=== PATIENT | female | born 1985 | race Caucasian/White ===

== ENCOUNTER 2018-03-15 10:51 | Emergency (ER) | payer OTHER, SELFPAY ==
[2018-03-15 11:32] LABS: HEMATOCRIT 39.1 % (36.0-47.0); HEMOGLOBIN 13.8 g/dl (12.0-15.5); MEAN CORPUSCULAR HEMOGLOBIN 31.4 pg (27.0-33.0); MEAN CORPUSCULAR HGB CONC 35.3 g/dl (32.0-36.5); MEAN CORPUSCULAR VOLUME 89.1 fl (80.0-96.0); PLATELET COUNT, AUTOMATED 204 10^3/uL (150-450); RED BLOOD COUNT 4.39 10^6/uL (4.00-5.40); RED CELL DISTRIBUTION WIDTH 12.3 % (11.5-14.5); WHITE BLOOD COUNT 10.2 10^3/uL (4.0-10.0)
[2018-03-15 11:43] LABS: CONTROL LINE HCG INT CTR LINE PRESENT; HCG, SERUM QUALITATIVE NEGATIVE (NEGATIVE)
[2018-03-15 11:59] LABS: ALBUMIN 4.6 GM/DL (3.2-5.2); ALBUMIN/GLOBULIN RATIO 1.24 (1.00-1.93); ALKALINE PHOSPHATASE 68 U/L (45-117); ALT/SGPT 26 U/L (12-78); ANION GAP 9 MEQ/L (8-16); AST/SGOT 11 U/L (7-37); BILIRUBIN,DIRECT 0.2 MG/DL (0.0-0.2); BILIRUBIN,TOTAL 0.5 MG/DL (0.2-1.0); BLOOD UREA NITROGEN 13 MG/DL (7-18); CALCIUM LEVEL 9.7 MG/DL (8.5-10.1); CARBON DIOXIDE LEVEL 25 MEQ/L (21-32); CHLORIDE LEVEL 102 MEQ/L (98-107); CREATININE FOR GFR 0.78 MG/DL (0.55-1.30); GLOMERULAR FILTRATION RATE > 60.0 (>60); GLUCOSE, FASTING 89 MG/DL (70-100); POTASSIUM SERUM 3.6 MEQ/L (3.5-5.1); SALICYLATE LEVEL 2.1 MG/DL (5.0-30.0); SODIUM LEVEL 136 MEQ/L (136-145); TOTAL PROTEIN 8.3 GM/DL (6.4-8.2)
[2018-03-15 12:00] LABS: ACETAMINOPHEN LEVEL < 2.0 UG/ML (10.0-30.0)
[2018-03-15] MEDS: LORazepam 2 MG TAB PO ×2 (12:00)
[2018-03-15 12:29] LABS: AMPHETAMINES LEVEL URINE NEGATIVE (NEGATIVE); BARBITURATES URINE NEGATIVE (NEGATIVE); BENZODIAZEPINES URINE NEGATIVE (NEGATIVE); CANNABINOIDS URINE NEGATIVE (NEGATIVE); COCAINE METABOLITE URINE POSITIVE (NEGATIVE); METHADONE URINE NEGATIVE (NEGATIVE); OPIATES URINE NEGATIVE (NEGATIVE); PHENCYCLIDINE URINE NEGATIVE (NEGATIVE)
[2018-03-17 14:20] LABS: ETHYL ALCOHOL (ETHANOL) < 0.003 % (0.000-0.010)
== END 2018-03-15 14:59 | disposition home or self-care (01) ==
LOC: M ED 10:51
DX: F43.0 Acute stress reaction (principal); F32.9 Major depressive disorder, single episode, unspecified; Z79.899 Other long term (current) drug therapy
CPT/HCPCS: 80320; G0480

== ENCOUNTER → 2018-07-02 | Outpatient (REF) | payer OTHER ==
[~2018-07-02] MED LIST: IRON27TA2 PO
== END ==
LOC: M LAB REF 10:20
PROVIDERS: ATTEND Physician Assistant
DX: M54.9 Dorsalgia, unspecified (principal)

== ENCOUNTER → 2018-07-03 | Outpatient (CLI) | payer OTHER ==
--- NOTE | 2018-07-03 10:48 | REP ---
Urinary tract sonogram: History: Dorsalgia. Comparison: No comparison study. Findings: Scanning at the level of the urinary bladder shows no abnormality. Bladder montanze are smooth. There is a 5.1 x 4.5 x 4.2 cm heterogeneous somewhat hyperechoic cystic lesion noted incidentally in the left ovary. This compatible with hemorrhagic cyst versus dermoid versus other lesion. Renal cortical echogenicity pattern is normal bilaterally and contours are smooth. There is no evidence of hydronephrosis, cyst, mass, or calculus in either kidney. The right kidney measures 11.2 x 5.8 x 6.6 cm. Left renal dimensions are 11.9 x 5.1 x 5.9 cm. Impression: 5.1 cm heterogeneous hyperechoic cystic lesion noted incidentally in the left ovary. Dermoid versus hemorrhagic cyst. Otherwise normal urinary tract sonography. Electronically Signed by Balta Andrea MD 07/03/2018 10:40 A
== END ==
LOC: M RAD 09:36
PROVIDERS: ATTEND Physician Assistant
DX: M54.9 Dorsalgia, unspecified (principal)

== ENCOUNTER → 2018-07-08 | Outpatient (REF) | payer OTHER ==
[2018-07-10 16:26] LABS: HPV HYBRID CAPTURE II Positive (Negative)
== END ==
LOC: M SFHCWAGY 10:14
PROVIDERS: ATTEND Nurse Practitioner Women's Health
DX: Z12.4 Encounter for screening for malignant neoplasm of cervix (principal); R87.610 Atypical squamous cells of undetermined significance on cytologic smear of cervix (ASC-US); R87.810 Cervical high risk human papillomavirus (HPV) DNA test positive

== ENCOUNTER → 2018-08-03 | Outpatient (CLI) | payer OTHER ==
--- NOTE | 2018-08-04 06:02 | REP ---
Clinical: Pelvic pain. Left ovarian cyst . Technique: Transabdominal pelvic ultrasound followed by transvaginal examination for better evaluation of the endometrium and adnexa with color Doppler evaluation of the ovaries. Findings: Bladder is unremarkable and measures 10.4 x 6.4 x 9.1 cm . Normal anteverted uterus measures 8.5 x 4.3 x 5.8 cm. The endometrial complex measures 13.5 mm thickness. No discrete uterine or endometrial abnormalities are appreciated. Minuscule amount of endocervical fluid noted. Small Nabothian cysts noted. Bilateral ovaries are normal in appearance and vascularity without evidence for torsion. Right ovary measures 2.4 x 1.3 x 1.4 cm ; R I = 0.48 . Left ovary measures 2.9 x 1.9 x 3.8 cm ; R I = 0.38 . No pelvic fluid or adnexal mass lesion . Impression: 1. essentially normal pelvic ultrasound.
== END ==
LOC: M WHC 08:33
PROVIDERS: ATTEND Nurse Practitioner Women's Health
DX: N83.202 Unspecified ovarian cyst, left side (principal)

== ENCOUNTER → 2018-08-24 | Outpatient (REF) | payer OTHER | LOC: M SFHCWAGY 13:42 | PROVIDERS: ATTEND Nurse Practitioner Women's Health | DX: R87.810 Cervical high risk human papillomavirus (HPV) DNA test positive (principal); R87.612 Low grade squamous intraepithelial lesion on cytologic smear of cervix (LGSIL); R87.610 Atypical squamous cells of undetermined significance on cytologic smear of cervix (ASC-US) ==

== ENCOUNTER 2019-11-18 04:34 | Emergency (ER) | payer OTHER ==
[~2019-11-18] VITALS: Ht 170.2 cm; Wt 85.0 kg
[2019-11-18] MEDS ORDERED: PARO5TAB (05:16)
[2019-11-18 05:22] LABS: HEMATOCRIT 40.1 % (36.0-47.0); HEMOGLOBIN 13.6 g/dl (12.0-15.5); MEAN CORPUSCULAR HEMOGLOBIN 31.5 pg (27.0-33.0); MEAN CORPUSCULAR HGB CONC 33.9 g/dl (32.0-36.5); MEAN CORPUSCULAR VOLUME 92.8 fl (80.0-96.0); PLATELET COUNT, AUTOMATED 217 10^3/uL (150-450); RED BLOOD COUNT 4.32 10^6/uL (4.00-5.40); WHITE BLOOD COUNT 9.1 10^3/uL (4.0-10.0)
[2019-11-18 05:37] LABS: HCG, SERUM QUALITATIVE NEGATIVE (NEGATIVE)
[2019-11-18 05:42] LABS: AMPHETAMINES LEVEL URINE POSITIVE (NEGATIVE); BARBITURATES URINE NEGATIVE (NEGATIVE); BENZODIAZEPINES URINE NEGATIVE (NEGATIVE); CANNABINOIDS URINE NEGATIVE (NEGATIVE); COCAINE METABOLITE URINE POSITIVE (NEGATIVE); METHADONE URINE NEGATIVE (NEGATIVE); OPIATES URINE NEGATIVE (NEGATIVE); PHENCYCLIDINE URINE NEGATIVE (NEGATIVE)
[2019-11-18 05:55] LABS: ALT/SGPT 26 U/L (12-78); BLOOD UREA NITROGEN 13 MG/DL (7-18); CALCIUM LEVEL 8.5 MG/DL (8.5-10.1); CARBON DIOXIDE LEVEL 26 MEQ/L (21-32); CHLORIDE LEVEL 108 MEQ/L (98-107); CREATININE FOR GFR 0.78 MG/DL (0.55-1.30); GLOMERULAR FILTRATION RATE > 60.0 (>60); GLUCOSE, FASTING 85 MG/DL (70-100); POTASSIUM SERUM 4.2 MEQ/L (3.5-5.1); SODIUM LEVEL 144 MEQ/L (136-145)
[2019-11-18 05:56] LABS: ACETAMINOPHEN LEVEL < 2.0 UG/ML (10.0-30.0); BILIRUBIN,DIRECT < 0.1 MG/DL (0.0-0.2); BILIRUBIN,TOTAL 0.2 MG/DL (0.2-1.0); ETHYL ALCOHOL (ETHANOL) 0.141 % (0.000-0.010); SALICYLATE LEVEL 2.2 MG/DL (5.0-30.0); TOTAL PROTEIN 7.7 GM/DL (6.4-8.2)
[2019-11-18 12:47] VITALS: BP 135/68
--- NOTE | 2019-11-18 21:25 | ECGEPIP ---
[facility] - ED Test Date: 2019-11-18 Pat Name: IBB CADENA Department: Room: - Gender: Female [employer]: : 1985 Requested By: ANCA HEDRICK Order Number: [id number] Reading MD: Roverto Weinstein Measurements Intervals [place] Rate: 103 P: [place]: 0 QRS: 55 QRSD: 87 T: 68 QT: 353 QTc: 463 Interpretive Statements SINUS TACHYCARDIA WITH RAPID VENTRICULAR RESPONSE NO PRIORS FOR COMPARISON Electronically Signed on 11-18-2019 21:25:33 EDT by Roverto Weinstein
== END 2019-11-18 12:48 | disposition home or self-care (01) ==
LOC: M ED 04:34
DX: F10.129 Alcohol abuse with intoxication, unspecified (principal); F15.10 Other stimulant abuse, uncomplicated; F14.10 Cocaine abuse, uncomplicated; T21.00XA Burn of unspecified degree of trunk, unspecified site, initial encounter; T14.8XXA Other injury of unspecified body region, initial encounter; T76.11XA Adult physical abuse, suspected, initial encounter; Y92.89 Other specified places as the place of occurrence of the external cause; F32.9 Major depressive disorder, single episode, unspecified; F17.200 Nicotine dependence, unspecified, uncomplicated; Z79.899 Other long term (current) drug therapy
CPT/HCPCS: 36415; 80048; 80076; 80307; 84443; 84703; 85027; 93005; 99284; G0480

== ENCOUNTER 2020-01-19 23:05 | Emergency (ER) | payer OTHER ==
[~2020-01-19 23:05] MED LIST changes: +PARO5TAB
[2020-01-19 23:10] VITALS: BP 171/104
== END 2020-01-20 00:06 | disposition home or self-care (01) ==
LOC: M ED 23:05
DX: F33.9 Major depressive disorder, recurrent, unspecified (principal); F41.9 Anxiety disorder, unspecified; Z63.0 Problems in relationship with spouse or partner; D64.9 Anemia, unspecified

== ENCOUNTER → 2022-03-11 | Outpatient (CLI) | payer OTHER ==
[2022-03-11 15:54] LABS: BASO % 0.2 % (0.0-1.0); EOS # 0.1 10^3/uL (0.0-0.5); EOS % 0.9 % (0.0-3.0); HEMATOCRIT 40.1 % (36.0-47.0); HEMOGLOBIN 13.3 g/dl (12.0-15.5); LYMPH # 1.7 10^3/uL (1.5-5.0); LYMPH % 19.6 % (24.0-44.0); MEAN CORPUSCULAR HEMOGLOBIN 30.1 pg (27.0-33.0); MEAN CORPUSCULAR HGB CONC 33.2 g/dl (32.0-36.5); MEAN CORPUSCULAR VOLUME 90.7 fl (80.0-96.0); MONO # 0.7 10^3/uL (0.0-0.8); NEUTROPHILS # 6.1 10^3/uL (1.5-8.5); NEUTROPHILS % 71.1 % (36.0-66.0); PLATELET COUNT, AUTOMATED 208 10^3/uL (150-450); RED BLOOD COUNT 4.42 10^6/uL (4.00-5.40); WHITE BLOOD COUNT 8.5 10^3/uL (4.0-10.0)
[2022-03-11 17:06] LABS: ALBUMIN 3.8 GM/DL (3.2-5.2); ALT/SGPT 17 U/L (12-78); BILIRUBIN,TOTAL 0.2 MG/DL (0.2-1.0); BLOOD UREA NITROGEN 16 MG/DL (7-18); CALCIUM LEVEL 8.9 MG/DL (8.5-10.1); CARBON DIOXIDE LEVEL 24 MEQ/L (21-32); CHLORIDE LEVEL 107 MEQ/L (98-107); CHOLESTEROL LEVEL 171 MG/DL (<200); CHOLESTEROL RISK RATIO 4.275 (<5); CREATININE FOR GFR 0.74 MG/DL (0.55-1.30); FERRITIN 80 NG/ML (8-252); GLOMERULAR FILTRATION RATE > 60.0 (>60); GLUCOSE, FASTING 92 MG/DL (70-100); HDL CHOLESTEROL 40 MG/DL (>40); IRON (FE) 99 UG/DL (50-170); LDL CHOLESTEROL 95 MG/DL (<100); NON-HDL-C 131 MG/DL; PERCENT SATURATION 29.9 % (13.2-45.0); POTASSIUM SERUM 4.3 MEQ/L (3.5-5.1); SODIUM LEVEL 135 MEQ/L (136-145); TOTAL IRON BINDING CAPACITY 331 UG/DL (250-450); TOTAL PROTEIN 7.6 GM/DL (6.4-8.2); TRIGLYCERIDES LEVEL 182 MG/DL (<150)
[2022-03-11 17:39] LABS: TOTAL 25(OH) VITAMIN D 21.3 NG/ML (30.0-100.0)
[2022-03-11 17:45] LABS: HEMOGLOBIN A1c 5.4 %
== END ==
LOC: M PLALAB 12:55
PROVIDERS: ATTEND Student in an Organized Health Care Education/Training Program
DX: Z13.220 Encounter for screening for lipoid disorders (principal)

== ENCOUNTER 2024-03-09 16:35 | Emergency (ER) | payer MEDICAID, OTHER ==
[~2024-03-09] VITALS: Ht 170.2 cm; Wt 97.9 kg
[2024-03-09] MEDS: ACETAMINOPHEN *IV* 1,000 MG in IV 1 EA IV ONE (20:55)
[2024-03-09 21:25] LABS: RSV AMPLIFICATION NEGATIVE (NEGATIVE)
[2024-03-09] MEDS: NS 1,000 ML IV ONE (21:26)
[2024-03-09 21:48] VITALS: BP 123/82
[2024-03-09 22:33] LABS: BASO % 0.5 % (0.0-1.0); EOS # 0.1 10^3/uL (0.0-0.5); EOS % 1.2 % (0.0-3.0); HEMATOCRIT 43.1 % (36.0-47.0); HEMOGLOBIN 14.6 g/dl (12.0-15.5); LYMPH # 2.5 10^3/uL (1.5-5.0); LYMPH % 29.9 % (24.0-44.0); MEAN CORPUSCULAR HEMOGLOBIN 30.5 pg (27.0-33.0); MEAN CORPUSCULAR HGB CONC 33.9 g/dl (32.0-36.5); MONO # 0.6 10^3/uL (0.0-0.8); MONO % 7.3 % (2.0-8.0); NEUTROPHILS # 5.2 10^3/uL (1.5-8.5); NEUTROPHILS % 60.7 % (36.0-66.0); PLATELET COUNT, AUTOMATED 251 10^3/uL (150-450); RED BLOOD COUNT 4.79 10^6/uL (4.00-5.40); WHITE BLOOD COUNT 8.5 10^3/uL (4.0-10.0)
[2024-03-09 22:35] VITALS: TEMP 97.5; O2SAT 100
[2024-03-09 22:54] LABS: LIPASE 27 U/L (12-53)
[2024-03-09 22:55] LABS: HCG, SERUM QUALITATIVE NEGATIVE (NEGATIVE)
[2024-03-09 22:56] LABS: ALBUMIN 4.1 G/DL (3.2-5.2); ALKALINE PHOSPHATASE 79 U/L (46-116); ALT/SGPT 11 U/L (7.0-40); AST/SGOT < 8 U/L (<34); BILIRUBIN,DIRECT 0.1 MG/DL (<0.4); BILIRUBIN,TOTAL 0.4 MG/DL (0.3-1.2); TOTAL PROTEIN 7.8 G/DL (5.7-8.2)
[2024-03-09] MEDS: MECLIZINE 25 MG TABLET PO ONE (23:55)
[2024-03-10] MEDS ORDERED: MECL-86 PO (01:38)
[2024-03-10] MEDS ORDERED: REGL10TA6 PO (01:38)
== END 2024-03-10 02:26 | disposition home or self-care (01) ==
LOC: M ED 16:35
DX: H81.4 Vertigo of central origin (principal); F17.200 Nicotine dependence, unspecified, uncomplicated; Z90.89 Acquired absence of other organs; Z79.899 Other long term (current) drug therapy
CPT/HCPCS: 70450; 74176; 80047; 80076; 81001; 83690; 84703; 85025; 87631; 96374; 99284; J0131

== ENCOUNTER → 2024-05-03 | Outpatient (CLI) | payer OTHER ==
[~2024-05-03] MED LIST changes: +MECL-86 PO; +REGL10TA6 PO
[2024-05-03 18:25] LABS: HEMATOCRIT 40.6 % (36.0-47.0); HEMOGLOBIN 13.7 g/dl (12.0-15.5); MEAN CORPUSCULAR HEMOGLOBIN 30.9 pg (27.0-33.0); MEAN CORPUSCULAR HGB CONC 33.7 g/dl (32.0-36.5); MEAN CORPUSCULAR VOLUME 91.6 fl (80.0-96.0); PLATELET COUNT, AUTOMATED 244 10^3/uL (150-450); RED BLOOD COUNT 4.43 10^6/uL (4.00-5.40); WHITE BLOOD COUNT 8.8 10^3/uL (4.0-10.0)
[2024-05-03 18:51] LABS: CHOLESTEROL RISK RATIO 3.56 (<5); HDL CHOLESTEROL 49.7 MG/DL (>40); LDL CHOLESTEROL 105.3 MG/DL (<100); NON-HDL-C 127.3 MG/DL
[2024-05-03 18:53] LABS: THYROID STIMULATING HORMONE 1.96 uIU/ML (0.55-4.78)
[2024-05-03 18:54] LABS: TOTAL 25(OH) VITAMIN D 23.9 NG/ML (20.0-100.0)
[2024-05-03 18:55] LABS: HEMOGLOBIN A1c 5.2 % (4.0-6.0)
== END ==
LOC: M PLALAB 15:51
PROVIDERS: ATTEND Student in an Organized Health Care Education/Training Program
DX: Z00.01 Encounter for general adult medical examination with abnormal findings (principal); Z86.2 Personal history of diseases of the blood and blood-forming organs and certain disorders involving the immune mechanism; E55.9 Vitamin D deficiency, unspecified

== ENCOUNTER → 2024-10-14 | Outpatient (REF) | payer OTHER | LOC: M LAB REF 12:18 | PROVIDERS: ATTEND Physician Assistant | DX: B34.9 Viral infection, unspecified (principal) ==